=== PATIENT | female | born 1985 | race Caucasian/White ===

== ENCOUNTER 2020-12-01 13:31 | Outpatient (CLI) | payer OTHER, SELFPAY ==
--- NOTE | ~2020-12-01 | US_ITS ---
EXAMINATION: US pelvic complete w TV DATE: 12/01/2020 15:17 INDICATION: Irregular menstruation. TECHNIQUE: Multiple transabdominal and transvaginal sonographic images of the pelvis were obtained. COMPARISON: None. FINDINGS: TRANSABDOMINAL ULTRASOUND: The uterus measures 8.1 x 6.4 x 5.2 cm. There is no free fluid in the pelvis. TRANSVAGINAL ULTRASOUND: The endometrial complex measures 7 mm in thickness. The right ovary measures 2.9 x 2.2 x 1.8 cm. The left ovary measures 6.5 x 5.1 x 3.8 cm. In the left ovary, there is a 5.5 cm cyst with peripheral low level echoes, likely a hemorrhagic cyst. There is normal vascular flow in the ovaries. IMPRESSION: 1. 5.5 cm hemorrhagic cyst in left ovary. Pelvis ultrasound is recommended in 6-12 weeks. Reviewed, dictated and finalized at location A. IMPRESSION: 1. 5.5 cm hemorrhagic cyst in left ovary. Pelvis ultrasound is recommended in 6 -12 weeks.
== END 2020-12-01 13:32 | disposition home or self-care (01) ==
PROVIDERS: Visit Provider Student in an Organized Health Care Education/Training Program
DX: N92.6 Irregular menstruation, unspecified (principal); N83.202 Unspecified ovarian cyst, left side
CPT/HCPCS: 76830; 76856

== ENCOUNTER 2021-01-04 15:22 | Outpatient (CLI) | payer OTHER, SELFPAY ==
--- NOTE | ~2021-01-04 | US_ITS ---
EXAMINATION: US pelvic complete w TV DATE: 01/04/2021 16:16 INDICATION: Left ovarian cyst. Left lower quadrant abdominal pain. TECHNIQUE: Multiple transabdominal and transvaginal sonographic images of the pelvis were obtained. COMPARISON: Ultrasound 12/01/2020 FINDINGS: TRANSABDOMINAL ULTRASOUND: The uterus measures 7.4 x 4.7 x 5.7 cm. There is no free fluid in the pelvis. TRANSVAGINAL ULTRASOUND: The endometrial complex measures 4 mm in thickness. The right ovary measures 4.1 x 1.5 x 2.2 cm. The left ovary measures 3.5 x 1.6 x 1.7 cm. There is normal vascular flow in the ovaries. IMPRESSION: 1. Normal pelvis. Reviewed, dictated and finalized at location A. IMPRESSION: 1. Normal pelvis.
== END 2021-01-04 15:23 | disposition home or self-care (01) ==
PROVIDERS: Visit Provider Student in an Organized Health Care Education/Training Program
DX: N83.202 Unspecified ovarian cyst, left side (principal)
CPT/HCPCS: 76830; 76856

== ENCOUNTER → 2021-02-27 16:13 | Outpatient (CLI) | payer OTHER, SELFPAY ==
--- NOTE | ~2021-02-27 | XR_ITS ---
XR_[id number]_CR DATE: 02/27/2021 16:37 INDICATION: Neck pain TECHNIQUE: AP, open-mouth, odontoid, lateral and swimmer views COMPARISON: None FINDINGS: There is mild levoscoliosis of the cervical spine. C1 and C2 are normally aligned and the o dontoid process is intact. No fracture or dislocation or locked facet or prevertebral soft tissue swe lling. Cervical interspaces appear well preserved. IMPRESSION: Mild scoliosis Reviewed, dictated and finalized at Location A. Reviewed, dictated and finalized at location B. IMPRESSION: Mild scoliosis
== END ==
PROVIDERS: PCP Family Medicine; Visit Provider Physician Assistant
DX: M54.2 Cervicalgia (principal); M41.82 Other forms of scoliosis, cervical region
CPT/HCPCS: 72040

== ENCOUNTER 2021-06-26 17:00 | Outpatient (RCR) | payer OTHER, SELFPAY ==
--- NOTE | 2021-03-29 10:40 | PTOPEVAL ---
PHYSICAL THERAPY EVALUATION AND PLAN OF CARE Thank you for referring Monique Santos to [facility].? The patient is scheduled to be seen for therapy?1-2x/week for 5 weeks. Please review, sign, date and return this plan of care BARBIE. I agree with and certify that the following plan of care is medically necessary. Referring Physician Date Evaluation Diagnosis cervical pain, right shoulder pain Onset 1month Subjective Information Reports that she has had this Query Text:As Reported By Patient/ problem on and off since Family childhood. Typically the symptoms will come and go, but this is the longest the symptoms have lasted. States that when she tries to look left she feels like there is a lot of pulling through the right side of the neck and shoulder and sometimes into the face and head. Can get headaches with it when the symptoms are very severe. Self Report Pain Assessment Right Neck Reported Pain Level 4 Pain Description Stabbing Pain Frequency Chronic,Intermittent Lowest Pain Intensity 0 Greatest Pain Intensity 9 Other Pain Aggravating Factors unknown Pain Behaviors None Pain Score Pain Score 4: Self Report Interventions Used Interventions Used By Clinicians Manual Therapy Techniques, Myofascial Release Pain Relief Interventions Used By Medication Patient Cervical and Lumbar ROM Cervical ROM Cervical Flexion (0-60) 30 Query Text:Active in Degrees Cervical Extension (0-70) 40 Query Text:Active in Degrees Cervical Rotation Right (0-90) 55 Query Text:Active in Degrees Cervical Rotation Left (0-90) 55 Query Text:Active in Degrees Cervical ROM Comments right lateral lean with extension Upper Extremity Range of Motion General Upper Extremity Range of Motion Gross Upper Extremity Range of Motion bilaterally grossly WFL, but Comments right side is more restrictd at end ranges than left Upper Extremity Muscle Strength Testing Scapular/Shoulder Right Scapular Retraction - Rhomboid 3+ Fair + Scapular Retraction - Middle Trapezius 3- Fair - Scapular Retraction - Lower Trapezius 3- Fair - Shoulder Flexion Strength 4+ Good + Shoulder Abduction Strength 4+ Good + Shoulder Medial Rotation Strength 4+ Good + Josette
--- NOTE | 2021-05-03 17:10 | PTOPEVAL ---
PHYSICAL THERAPY PROGRESS REPORT Thank you for referring Monique Santos to [facility].? The patient is scheduled to be seen for therapy? 1x/week for 5 weeks. Please review, sign, date and return this plan of care BARBIE. I agree with and certify that the following plan of care is medically necessary. Referring Physician Date Progress Diagnosis cervical pain, right shoulder pain Onset 1month Subjective Information Monique has had good and bad Query Text:As Reported By Patient/ days with on and off Family improvement. The last couple of weeks there was improvement , but this past week has been more painful and the tightness and difficulty turning head while driving is coming back. Self Report Pain Assessment Right Scapula Reported Pain Level 3 Pain Frequency Chronic Pain Aggravating Factors Palpation Right Neck Reported Pain Level 3 Pain Description Soreness Pain Frequency Chronic,Intermittent Other Pain Aggravating Factors unknown Pain Behaviors None Pain Score Pain Score 3,3: Self Report Interventions Used Interventions Used By Clinicians Dry Needling,Exercise,Joint Mobilization,Manual Therapy Techniques,Myofascial Release Pain Relief Interventions Used By Medication Patient Cervical and Lumbar ROM Cervical ROM Cervical Flexion (0-60) 35 Query Text:Active in Degrees Cervical Extension (0-70) 50 Query Text:Active in Degrees Cervical Rotation Right (0-90) 55 Query Text:Active in Degrees Cervical Rotation Left (0-90) 55 Query Text:Active in Degrees Upper Extremity Range of Motion General Upper Extremity Range of Motion Gross Upper Extremity Range of Motion bilaterally grossly WFL, but Comments right side is more restrictd at end ranges than left Upper Extremity Muscle Strength Testing Scapular/Shoulder Right Scapular Retraction - Rhomboid 3+ Fair + Scapular Retraction - Middle Trapezius 3- Fair - Scapular Retraction - Lower Trapezius 3- Fair - Shoulder Flexion Strength 4+ Good + Shoulder Abduction Strength 4+ Good + Shoulder Medial Rotation Strength 4+ Good + Shoulder Lateral Rotation Strength 4+ Good + Palpation severe hypomobility of thoracic spine and tender to palpation along medial border of right scapula; trigger point and thicke
--- NOTE | 2021-06-06 17:52 | PTOPEVAL ---
PHYSICAL THERAPY PROGRESS REPORT AND PLAN OF CARE UPDATE Thank you for referring Monique Santos to [facility].? The patient is scheduled to be seen for therapy? 1x/week for 5 weeks. Please review, sign, date and return this plan of care BARBIE. I agree with and certify that the following plan of care is medically necessary. Referring Physician Date Progress Diagnosis cervical pain, right shoulder pain Onset 1month Subjective Information States that overall she is Query Text:As Reported By Patient/ doing really well. States that Family when she is doing work looking down at the desk there is a lot of aching Self Report Pain Assessment Right Scapula Reported Pain Level 2 Pain Frequency Chronic Pain Aggravating Factors Palpation Right Neck Reported Pain Level 1 Pain Description Soreness Pain Frequency Chronic,Intermittent Other Pain Aggravating Factors unknown Pain Behaviors None Pain Score Pain Score 2,1: Self Report Interventions Used Interventions Used By Clinicians Dry Needling,Exercise,Joint Mobilization,Manual Therapy Techniques,Myofascial Release Pain Relief Interventions Used By Medication Patient Cervical and Lumbar ROM Cervical ROM Cervical Flexion (0-60) 60 Query Text:Active in Degrees Cervical Extension (0-70) 50 Query Text:Active in Degrees Cervical Rotation Right (0-90) 60 Query Text:Active in Degrees Cervical Rotation Left (0-90) 55 Query Text:Active in Degrees Upper Extremity Range of Motion General Upper Extremity Range of Motion Gross Upper Extremity Range of Motion symmetrical and WNL Comments Lower Extremity Muscle Strength Testing General Lower Extremity Strength Gross Lower Extremity Strength right hip extension strength: 3/5 left hip extension strength: 3 -/5 Upper Extremity Muscle Strength Testing Scapular/Shoulder Left Scapular Retraction - Rhomboid 4- Good - Scapular Retraction - Middle Trapezius 3 Fair Scapular Retraction - Lower Trapezius 3 Fair Shoulder Flexion Strength 4+ Good + Shoulder Abduction Strength 5 Normal Shoulder Medial Rotation Strength 4+ Good + Shoulder Lateral Rotation Strength 5 Normal Right Scapular Retraction - Rhomboid 4- Good - Scapular Retraction - Middle Trapezius 3- Fair - Scapular Retraction - Lower Trapezius 3- Fair - Shoulder Flexion Strength 4+ Good + Shoulder Abduction Strength 4+ Good + Shoulder Lateral Rotation Strength 5 Normal
--- NOTE | 2021-06-28 15:24 | PCPTNOTE ---
This treatment is being continued on visit number [id number]. Please see documentation on both accounts to view progress. Completed interventions, outcomes, and problems have been marked as Inactive to facilitate the copying of the Care plan routine for recurring accounts.
== END 2021-06-27 13:21 | disposition home or self-care (01) ==
LOC: ANHPT 17:00
PROVIDERS: PCP Family Medicine
DX: M79.18 Myalgia, other site (principal)
CPT/HCPCS: 20560; 97110; 97140; 97162

== ENCOUNTER 2021-07-10 11:03 | Outpatient (RCR) | payer OTHER, SELFPAY ==
--- NOTE | 2021-06-28 15:24 | PCPTNOTE ---
The treatment documented on this account is a continuation of the treatment documented on visit number [id number]. Please see documentation on both accounts to view progress. The Plan of Care has been transitioned and updated within the new V#. I have addressed and agree with the discipline specific Problems, Interventions, and Goals for the current certification period. Completed interventions, outcomes, and problems have been marked as Inactive to facilitate the copying of the Care plan routine for recurring accounts.
--- NOTE | 2021-07-10 08:32 | PTOPEVAL ---
PHYSICAL THERAPY DISCHARGE NOTE Thank you for referring Monique Santos to [facility].? Please review, sign, date and return this plan of care BARBIE. I agree with and certify that the following plan of care is medically necessary. Referring Physician Date Discharge Diagnosis cervical pain, right shoulder pain Subjective Information States that she is feeling Query Text:As Reported By Patient/ really very well except for a Family spot on the right side that feels deep - feels like a stretch but just isn't giving up. Self Report Pain Assessment Right Spine, Cervical Reported Pain Level 1 Pain Description Tightness Pain Score Pain Score 1: Self Report Interventions Used Interventions Used By Clinicians Exercise Cervical and Lumbar ROM Cervical ROM Cervical Flexion (0-60) 60 Query Text:Active in Degrees Cervical Extension (0-70) 50 Query Text:Active in Degrees Cervical Rotation Right (0-90) 60 Query Text:Active in Degrees Cervical Rotation Left (0-90) 60 Query Text:Active in Degrees Cervical ROM Comments left side bend restricted compared to the right with increased tension on the right side when leaning left Upper Extremity Muscle Strength Testing Scapular/Shoulder Bilateral Scapular Retraction - Middle Trapezius 4 Good Scapular Retraction - Lower Trapezius 4- Good - Shoulder Flexion Strength 5 Normal Shoulder Extension Strength 5 Normal Shoulder Abduction Strength 5 Normal Shoulder Medial Rotation Strength 5 Normal Shoulder Lateral Rotation Strength 5 Normal Manual Therapy Manual Therapy Side Right Manual Therapy Location Spine, Cervical Patient Position supine/prone Treatment Comments prone thoracic mobilizations: Query Text:Include Technique and significantly improved Result of Technique thoracic and rib mobility; good cervical spine mobility in posterior to anterior direction and lateral glides scalenes on right continue to demonstrate tension and soreness PT Clinical Summary Monique is a 35 yo female presenting to outpatient physical therapy with c/o acute on chronic right sided neck and shoulder and upper back pain. Fely
== END 2021-09-24 09:46 | disposition home or self-care (01) ==
LOC: ANHPT 11:03
PROVIDERS: PCP Family Medicine
DX: M79.18 Myalgia, other site (principal)
CPT/HCPCS: 97140

== ENCOUNTER 2023-07-26 15:55 | Emergency (ER) | payer OTHER, SELFPAY ==
[2023-07-26 16:21] VITALS: BP 129/81; PULSE 95; RESP 20; TEMP 36.6; O2SAT 100
--- NOTE | 2023-07-26 17:18 | ED.URI ---
HPI - URI/Sore Throat General Chief Complaint: Upper Respiratory Infection Stated Complaint: sinus drainage,cough,loss of voice Time Seen by Provider: 07/26/23 17:00 Source: patient Mode of arrival: ambulatory Limitations: no limitations History of Present Illness HPI Narrative: Monique is a 37-year-old female patient presenting to clinic today with complaints of possible sinus infection. She reports she has had symptoms for 1.5 weeks. Has been blowing out green nasal drainage and having a lot of sinus pressure. MD elicited complaint: sore throat and nasal congestion Related Data Home Medications Medication Instructions Recorded Confirmed spironolactone 100 mg tablet 150 mg PO DAILY 11/24/20 07/26/23 cetirizine 10 mg capsule (Zyrtec) 10 mg PO DAILY 05/22/22 07/26/23 Allergies Allergy/AdvReac Type Severity Reaction Status Date / Time No Known Allergies Allergy Verified 07/26/23 16:26 Review of Systems Review of Systems: Pertinent positives per HPI. Patient denies any fever, chills, rash, headache, visual changes, dizziness, shortness of breath, chest pain, palpitations, nausea, vomiting, diarrhea, constipation, abdominal pain, or any urinary issues. [facility] Past Medical History Medical History History of abnormal cervical Pap smear History of vaginal delivery x 2 Seasonal allergies Surgical History Surgical History History of carpal tunnel surgery of right wrist [place] teeth extracted Family History Family History Grandparent Breast cancer Cervical cancer Ovarian cancer Grandparent Hypertension Social History Social History Smoking status: Never smoker Alcohol intake: former Substance use: never Lack of Transportation: No Lack of Food: Never True Current Housing: I Have Housing Concerned About Future Housing: No Difficulty Paying Gas/Electric Bills: No Difficulty Paying for Meds: No Currently Unemployed: No Difficulty w/ Childcare or Family Care: No Occupation/Education: occupation Gender identity (if verbalized by the patient): Female Sexual Orientation (if Verbalized by the Patient): Straight or Heterosexual Comments At the time of my signature, I reviewed and agree with the nursing past medical, surgical, social, and family history. There is no relevant family history pertinent to the patient complaint. Exam Narrative: General: Well-developed, well nourished, in no apparent distress Head: Normocephalic, atraumatic Eyes: Pupils equally round and reactive to light bilaterally, EOM intact, sclera and conjunctive clear, no discharge, lids normal Ears: TMs intact and clear, ear canals clear, no drainage, grossly hearing normal. Nose: Nares patent, green nasal discharge, moderate inflammation, maxillary and frontal sinus tenderness. Mouth: Oral pharynx without lesions or masses, good dentition, MMM. Neck: Supple, trachea midline, no enlargement of anterior or posterior cervical nodes, no thyroid masses or goiter palpable. Cardio: Regular rate and rhythm, s1 and s2 normal, no murmur appreciated. Resp: Clear to auscultation bilaterally, no rhonchi, rales, wheezing or rubs Course Course Emergency Course: Portions of this record may have been created with voice recognition software. Level of Care: Express Care Visit Vital Signs Vital signs: Vital Signs Temperature 36.6 C 07/26/23 16:21 Pulse Rate 95 07/26/23 16:21 Respiratory Rate 20 07/26/23 16:21 Blood Pressure 129/81 07/26/23 16:21 Pulse Oximetry 100 07/26/23 16:21 Oxygen Delivery Room Air 07/26/23 16:21 Temperature 36.6 C 07/26/23 16:21 Pulse Rate 95 07/26/23 16:21 Respiratory Rate 20 07/26/23 16:21 Blood Pressure 12
== END 2023-07-26 17:28 | disposition home or self-care (01) ==
PROVIDERS: Emergency Provider Nurse Practitioner Family; PCP Physician Assistant
DX: J01.80 Other acute sinusitis (principal); B96.89 Other specified bacterial agents as the cause of diseases classified elsewhere
CPT/HCPCS: 99213; G0463

== ENCOUNTER 2023-09-08 08:08 | Outpatient (RCR) | payer OTHER, SELFPAY ==
--- NOTE | 2023-09-08 09:19 | OPREHPOC ---
Outpatient Therapy Plan of Care This is a Multidisciplinary Plan of Care that may contain components documented by all disciplines (PT, OT, and ST.) PT Problem 1 PT Problem #1 Knowledge Deficit PT Goal 1 Goal 1. independent and compliant with HEP Target Visit 6 PT Problem 2 PT Problem #2 Pain PT Goal 1 Goal 1. decrease pain at worst to 5/10 or less PT Problem 3 PT Problem #3 Impaired Range of Motion PT Goal 1 Goal 1. improve cervical flexion and extension to 45 degrees each or better 2. improve L cervical rotation to 50 degrees 3. improve L cervical side bending to 24 degrees or better Target Visit 12 PT Problem 4 PT Problem #4 Impaired Functional Mobil PT Goal 1 Goal 1. patient to freely look over the L shoulder with only head/neck movement and no pain 2. patient to return to routine weekly yoga and exercise classes 3. patient to report no tenderness to palpation in the R UT, sub-occipitals, or R cervical paraspinals. Target Visit 12
--- NOTE | 2023-09-08 09:19 | PTOPEVAL1 ---
Assessment and note entered by JT File, PT Evaluation Information Assessment Status Evaluation Diagnosis myofascial pain, neck and shoulder pain Onset 09/04/23 Subjective Information patient reports she has had pain and symptoms in the neck and R shoulder since a fall back in 6th grade. she reports she has shoulder spasms in the R shoulder that radiates into the R neck and skull and then into a mamadou's horn pattern on the head. she reports she has increased pain and symptoms at times, but she is unsure of what exactly causes the symptoms increase. she admits it may be her posture or stress. she reports she works at a [employer] in [place] she reports she has had dry needling in the past on the neck. she reports she does not get any NTB in the R UE, R neck, or jaw. Reported Pain Level Pain Score 5: Self Report Assessment PT Clinical Summary mrs. méndez is a 38 yo woman who presents to skilled PT services for evaluation and treatment of R neck pain. she presents today with decreased cervical rom, cervical mm tightness, pain, tenderness with palpation, and decreased functional activity performance. 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 continued skilled PT is indicated to improve patients objective/functional deficits and improve her functional activity performance/quality of life. Plan of Care Interventions Electrical Stimulation,Hot Pack/Cold Pack,Manual Therapy,Patient/Caregiver Educati,Therapeutic Activities,Therapeutic Exercise,Other Other Interventions dry needling PT Services Indicated Yes Treatment Frequency and 3x weekly for 12 visits Duration These treatments will address the objective and functional deficits as defined above. The patient will be advanced safely and appropriately in order for the patient to progress towards his/her prior level of function. Additional exercises will be introduced and as well as a comprehensive home exercise program upon discharge, if needed, ?to ensure carryover of functional gains achieved in the clinic. This treatment plan has been reviewed and agreement upon by the patient.
--- NOTE | 2023-09-23 11:25 | PCPTNOTE ---
patient called and cancelled therapy for an unknown reason
== END 2023-09-19 20:00 | disposition home or self-care (01) ==
LOC: CHSPT 08:08
PROVIDERS: PCP Family Medicine; Visit Provider Physician Assistant
DX: M79.18 Myalgia, other site (principal)
CPT/HCPCS: 97012; 97014; 97110; 97140; 97161; G0283